=== PATIENT | female | born 1955 | race Caucasian/White ===

== ENCOUNTER 2018-09-19 16:26 | Emergency (ER) | payer OTHER ==
[~2018-09-19] VITALS: Ht 162.6 cm; Wt 63.5 kg
[~2018-09-19 16:26] MED LIST: AMLO10TA12 PO; ASPI81CH43 PO; CHLO50TA PO; CLO01T PO; DOXY-216 PO; IPRA0.035; LOSA-46 PO; MET50T PO; MUPI2OIN10 EACHNOSTRI; PANT1INJ3 PO; PAR20T PO; PRAV20TA3 PO; SUCR1TAB PO
[2018-09-19 17:01] LABS: Basophils # (auto) 0.1 uL; Eosinophils # (auto) 0.2 uL; Eosinophils % (auto) 2.7 % (0.0-7.0); Hematocrit 36.4 % (36.0-46.0); Hemoglobin 11.8 g/dL (12.2-16.2); Lymphocytes # (auto) 0.7 uL; Lymphocytes % (auto) 9.9 % (10.0-50.0); Mean Corpuscular Hemoglobin 25.1 pg (28.0-32.0); Mean Corpuscular Hgb Conc. 32.4 g/dL (32.0-36.0); Mean Corpuscular Volume 77.7 fL (80.0-100.0); Monocytes # (auto) 0.6 uL; Monocytes % (auto) 8.6 % (0.0-12.0); Neutrophils # (auto) 5.4 uL; Neutrophils % (auto) 77.8 % (37.0-80.0); Platelet Count (auto) 231 10^3/uL (140-450); Red Blood Cells 4.68 10^6/uL (4.0-5.20); Red Cell Distribution Width 18.3 % (11.8-14.3)
[2018-09-19] MEDS ORDERED: ASPirin 81 mg TAB PO ONE (17:15)
[2018-09-19 17:17] LABS: Albumin 3.1 g/dL (3.4-5.0); Calcium 8.3 mg/dL (8.5-10.1); Potassium 4.2 mmol/L (3.5-5.1)
[2018-09-19 17:22] LABS: Bilirubin, Total 1.1 mg/dL (0.2-1.0); Total Protein 6.6 g/dL (6.4-8.2)
[2018-09-19 17:33] LABS: INR 1.03 (0.9-1.15); Partial Thromboplastin Time 27.1 sec (23.78-33.04)
[2018-09-19] MEDS ORDERED: DILTIAZEM HCL 25 MG/5 ML VIAL IV ONE ×2 (17:45→19:30)
[2018-09-19] MEDS ORDERED: AZITHROMYCIN 250 MG TAB PO ONE (21:15)
[2018-09-19] MEDS ORDERED: LABETALOL HCL 5 MG/ML ML 20ML VIAL IV ONE (21:15)
[2018-09-19] MEDS ORDERED: METOPROLOL TARTRATE 25 MG TAB PO ONE (21:45)
[2018-09-20] MEDS ORDERED: LABETALOL HCL 5 MG/ML ML 20ML VIAL IV ONE (01:00)
[2018-09-20 01:47] VITALS: BP 152/82
[2018-09-29] MEDS ORDERED: PANT40TA2 PO (14:30)
[2018-09-29] MEDS ORDERED: LOSA-46 PO (14:30)
[2018-09-29] MEDS ORDERED: METO-158 PO (14:30)
[2018-09-29] MEDS ORDERED: LISI40TA PO (14:49)
[2018-10-01] MEDS ORDERED: DILT1TAB4 PO (12:29)
[2018-10-02] MEDS ORDERED: CAR3125T PO (11:57)
[2018-10-03] MEDS ORDERED: FURO40TA PO (09:17)
[2018-10-03] MEDS ORDERED: POTA10TA51 PO (09:17)
== END 2018-09-20 04:30 | disposition home or self-care (01) ==
LOC: EDBD 16:26 → ER 16:26 → EDUNIT# 16:26 → ER 09-20 04:30
DX: J44.9 Chronic obstructive pulmonary disease, unspecified (principal); I48.91 Unspecified atrial fibrillation; I11.0 Hypertensive heart disease with heart failure; I50.42 Chronic combined systolic (congestive) and diastolic (congestive) heart failure; F17.210 Nicotine dependence, cigarettes, uncomplicated; F12.10 Cannabis abuse, uncomplicated
CPT/HCPCS: 36415; 71045; 80053; 83735; 83880; 84443; 84484; 85025; 85610; 85730; 93005; 94761; 96374; 96375; 96376

== ENCOUNTER 2018-09-27 06:57 | Emergency (ER) | payer OTHER ==
[~2018-09-27] VITALS: Ht 165.1 cm; Wt 69.4 kg
[2018-09-27 07:13] VITALS: BP 181/123
[2018-09-27] MEDS ORDERED: IPRATROPIUM BROM 0.5 MG/2.5ML INH SOL NEB ONE (07:30)
[2018-09-27] MEDS ORDERED: ALBUTEROL SULF 2.5 MG/0.5ML(0.5%) NEB SOLN NEB ONE (07:30)
[2018-09-27] MEDS ORDERED: METOPROLOL TARTRATE 50 MG TAB PO ONE (07:30)
[2018-09-27] MEDS ORDERED: KETOROLAC TROMETH 30 MG/ML 1ML VIAL IV ONE (07:30)
[2018-09-27 07:40] LABS: Basophils # (auto) 0.1 uL; Lymphocytes # (auto) 0.4 uL; Mean Corpuscular Hgb Conc. 31.2 g/dL (32.0-36.0); White Blood Cell 5.5 10^3/uL (4.4-10.8)
[2018-09-27 07:42] LABS: Basophils % (auto) 1.5 % (0.0-2.0); Eosinophils # (auto) 0.2 uL; Eosinophils % (auto) 2.8 % (0.0-7.0); Hematocrit 36.7 % (36.0-46.0); Hemoglobin 11.5 g/dL (12.2-16.2); Lymphocytes % (auto) 7.2 % (10.0-50.0); Mean Corpuscular Hemoglobin 24.5 pg (28.0-32.0); Mean Corpuscular Volume 78.4 fL (80.0-100.0); Monocytes # (auto) 0.6 uL; Monocytes % (auto) 10.6 % (0.0-12.0); Neutrophils # (auto) 4.3 uL; Neutrophils % (auto) 77.9 % (37.0-80.0); Nucleated Red Blood Cells % 0.3 %; Platelet Count (auto) 279 10^3/uL (140-450); Red Blood Cells 4.68 10^6/uL (4.0-5.20); Red Cell Distribution Width 18.4 % (11.8-14.3)
[2018-09-27 08:06] LABS: Albumin 3.5 g/dL (3.4-5.0); Magnesium 2.2 mg/dL (1.6-2.6); Potassium 3.9 mmol/L (3.5-5.1)
[2018-09-27 08:14] LABS: BUN/Creatinine Ratio 26.1; Bilirubin, Total 1.1 mg/dL (0.2-1.0); Total Protein 6.8 g/dL (6.4-8.2)
[2018-09-29] MEDS ORDERED: LOSA-46 PO (14:30)
[2018-09-29] MEDS ORDERED: PANT40TA2 PO (14:30)
[2018-09-29] MEDS ORDERED: METO-158 PO (14:30)
[2018-09-29] MEDS ORDERED: LISI40TA PO (14:49)
== END 2018-09-27 10:19 | disposition home or self-care (01) ==
LOC: EDBD 06:57 → ER 06:57
DX: S22.32XA Fracture of one rib, left side, initial encounter for closed fracture (principal); I48.91 Unspecified atrial fibrillation; I25.10 Atherosclerotic heart disease of native coronary artery without angina pectoris; I11.0 Hypertensive heart disease with heart failure; I50.9 Heart failure, unspecified; J44.9 Chronic obstructive pulmonary disease, unspecified; E78.5 Hyperlipidemia, unspecified; F17.210 Nicotine dependence, cigarettes, uncomplicated; F12.90 Cannabis use, unspecified, uncomplicated; W06.XXXA Fall from bed, initial encounter; Y93.89 Activity, other specified; Y99.8 Other external cause status; Y92.89 Other specified places as the place of occurrence of the external cause
CPT/HCPCS: 36415; 71111; 73502; 80053; 83735; 84484; 85025; 94640; 96374; 99284; J1885; J7611; J7644